=== PATIENT | female | born 1960 | race Caucasian/White ===

== ENCOUNTER 2018-12-21 09:03 | Outpatient (CLI) | payer OTHER ==
[2018-12-21] MEDS ORDERED: KOMBIGLYZE XR1 EAC2 (10:12)
[2018-12-21] MEDS ORDERED: LISINOPRIL10 MG (10:13)
[2018-12-21] MEDS ORDERED: ASA81 MG (10:13)
[2018-12-21] MEDS ORDERED: SIMVASTATIN20 MG (10:13)
[2018-12-21] MEDS ORDERED: CLONAZEPAM1 M1 (10:14)
[2018-12-21] MEDS ORDERED: AMBIEN10 MG (10:14)
[2018-12-21] MEDS ORDERED: PROZAC20 MG (10:15)
[2018-12-21] MEDS ORDERED: NEURONTIN800 MG (10:15)
== END 2018-12-21 10:14 | disposition home or self-care (01) ==
LOC: LAB 09:03
DX: D64.89 Other specified anemias (principal); E88.9 Metabolic disorder, unspecified; D68.8 Other specified coagulation defects; N39.0 Urinary tract infection, site not specified; Z22.322 Carrier or suspected carrier of Methicillin resistant Staphylococcus aureus; I10 Essential (primary) hypertension; Z76.89 Persons encountering health services in other specified circumstances

== ENCOUNTER 2019-01-03 08:17 | Day surgery (SDC) | payer OTHER ==
[~2019-01-03 08:17] MED LIST: AMBIEN10 MG; ASA81 MG; CLONAZEPAM1 M1; KOMBIGLYZE XR1 EAC2; LISINOPRIL10 MG; NEURONTIN800 MG; PROZAC20 MG; SIMVASTATIN20 MG
== END 2019-01-03 16:15 | disposition home or self-care (01) ==
LOC: CIR.AMB 08:17 → AMB-ENDOS 08:45 → CIR.AMB 16:15 → AMB-ENDOS 19:36 → CIR.AMB 19:36
DX: M65.842 Other synovitis and tenosynovitis, left hand (principal)